=== PATIENT | female | born 1950 | race Two or more races ===

== ENCOUNTER 2023-02-24 13:20 | Emergency (ER) | payer OTHER ==
[~2023-02-24] VITALS: Ht 157.5 cm; Wt 81.8 kg
[2023-02-24] MEDS ORDERED: KETOROLAC TROMETH 30 MG/ML 1ML VIAL IV ONE (14:15)
[2023-02-24] MEDS ORDERED: IOHEXOL 300 MG/ML 100ML BOTTLE IJ ONE (14:22)
[2023-02-24 15:09] VITALS: BP 142/80; PULSE 81; RESP 16; TEMP 97.9; O2SAT 98
== END 2023-02-24 15:38 | disposition home or self-care (01) ==
LOC: EDBD 13:20 → ER 13:20
DX: S60.012A Contusion of left thumb without damage to nail, initial encounter (principal); S60.211A Contusion of right wrist, initial encounter; S60.811A Abrasion of right wrist, initial encounter; S60.812A Abrasion of left wrist, initial encounter; R10.84 Generalized abdominal pain; M54.2 Cervicalgia; R07.89 Other chest pain; M79.605 Pain in left leg; M79.604 Pain in right leg; V89.2XXA Person injured in unspecified motor-vehicle accident, traffic, initial encounter; Y93.89 Activity, other specified; Y92.89 Other specified places as the place of occurrence of the external cause; Y99.8 Other external cause status
CPT/HCPCS: 71045; 71120; 72040; 73130; 74177; 96374; 99285; J1885; Q9967